=== PATIENT | male | born 1945 | race Native Hawaiian/Other Pacific Islander ===

== ENCOUNTER 2017-09-18 19:01 | Observation (INO) ==
--- NOTE | 2017-09-18 21:11 | ECG ---
Date Performed: 09/18/2017 Time Performed: 19:09:26 PTAGE: 72 years EKG: Sinus rhythm NORMAL ECG NO PREVIOUS TRACING DOCTOR: Klasu Edward Interpretating Date/Time 09/18/2017 21:11:09
--- NOTE | 2017-09-18 22:39 | ED ---
HPI General Chief Complaint: Chest Pain Stated Complaint: Patient states chest pain Time Seen by Provider: 09/18/17 22:01 Source: patient Limitations: no limitations History of Present Illness HPI narrative: The patient is a 72 year old male who presents to the [facility] emergency department with a history of 1 hour prior to arrival while resting having a sensation in his chest of his heart beating harder than usual. He denies having any chest pain or chest pressure. He does report having a pressure sensation in his neck associated with this. He denies having any shortness of breath. He denies having any diaphoresis. He reports that he also had an itchy sensation and bilateral arms. The patient has a history of coronary artery disease status post coronary artery bypass grafting of 5 vessels in 2009. He reports that he has not seen his biostatistics director for years or had a stress test in years as he has not had his primary care physician is Dr. Michael. The patient reports having a history of hypertension, hyperlipidemia , and borderline diabetes. The patient denies taking aspirin daily. The patient is however on Plavix for a prior history of stroke. The patient denies any history of fever, cough, congestion, neck pain, chest pain, shortness of breath, abdominal pain, vomiting, diarrhea, urinary symptoms , or neurologic symptoms. LMP [-] Tetanus is reportedly up to date. MD complaint: chest pain Complete Quality Measures for STEMI Alert Patients Onset (ago): hour(s) (1 hour ago) Duration: constant Onset: during rest Pain location: substernal Severity: mild Severity scale (1-10): 1 Quality: other (Sensation of heart beating "hard" in his chest) Pain radiation: RUE, LUE and neck Relieving factors: nothing Exacerbating factors: nothing Associated symptoms: palpitations Treatments prior to arrival chest pain: none Related Data Home Medications Medication Instructions Recorded Confirmed atorvastatin 20 mg PO DAILY 09/18/17 09/18/17 clopidogrel [Plavix] 75 mg PO DAILY 09/18/17 09/18/17 losartan 50 mg PO DAILY 09/18/17 09/18/17 metoprolol tartrate 50 mg PO BID 09/18/17 09/18/17 Allergies Allergy/AdvReac Type Severity Reaction Status Date / Time No Known Allergies Allergy Verified 09/18/17 20:11 Review of Systems ROS Unobtainable All other systems reviewed negative except as stated in HPI Constitutional Denies fever(s) Eyes Denies change in vision ENT Denies headache(s), Denies nasal congestion and Reports neck pain (Bilateral anterior neck) Cardiovascular Reports chest pain Respiratory Denies dyspnea and Denies dyspnea on exertion Gastrointestinal Denies abdominal pain, Denies diarrhea, Denies nausea and Denies vomiting Genitourinary Denies difficulty urinating Musculoskeletal Denies myalgias Integumentary/Breasts Denies rash Neurologic Denies headache(s), Denies focal weakness, Denies tingling and Denies weakness Psychiatric Denies depression Endocrine Denies polyuria Hematologic/Lymphatic Denies easy bruising PMFSH History History Provided By: Patient Medical History Medical History Bypass graft stenosis (Acute) CLL (chronic lymphocytic leukemia) (Acute) CVA (cerebral vascular accident) (Acute) Hyperlipidemia (Acute) Hypertension (Acute) Surgical History Surgical History History of cataract surgery (Acute) Hx of abdominal surgery (Acute) S/P CABG x 5 (Acute) Social History Social History Substance History: No History of Abuse Second Hand Smoke Exposure: No Smoking Status: Former smoker Tobacco Type: Cigarettes How Often Do You Have a Drink Containing Alcohol: Monthly or less Recent Travel in [facility] within the Last 8 Weeks: No Recent Out of Country Travel within the Last 8 Weeks: No Course Hospital Course: During the course of the patient's emergency department visit, the patient's history, examination, and differential diagnosis were reviewed with the patient. The patient was placed on a child monitor with oximetry and frequent blood pressure monitoring. The patient had IV access obtained and blood work sent for analysis. The patient was initially provided aspirin 324 mg p.o. 1, nitroglycerin sublingual 1, nitroglycerin 1 inch to the chest wall. Initial Documented Vital Signs Temperature 98.5 F 09/18/17 20:12 Pulse Rate 58 L 09/18/17 20:12 Respiratory Rate 16 09/18/17 20:12 Blood Pressure 137/66 09/18/17 20:12 Pulse Oximetry 97 09/18/17 20:12 Last Documented Vital Signs Temperature 98.5 F 09/18/17 20:12 Pulse Rate 71 09/19/17 01:18 Respiratory Rate 20 09/19/17 01:18 Blood Pressure 149/68 H 09/19/17 01:18 Pulse Oximetry 97 09/19/17 01:18 Medical Decision Making MDM Narrative Medical decision making narrative: The patient's diagnostic evaluation was started to identify any evidence of a STEMI, versus unstable angina, versus acid reflux, versus pneumonia, versus pneumothorax. The patient's diagnostic workup a white count of 26.9 in a patient with a reported history of his white count being around 25 related to his CLL, platelets 105, lymphocytes 56, hemoglobin 16.4, PT 11, PTT 24.7. Chemistry is remarkable for a troponin I of less than 0.02, CPK is noted to be 91, glucose 108, GFR of 82, calcium 8.4. Chest x-ray showed no evidence of acute cardiopulmonary disease. His CTA has been ruled out to evaluate for possible underlying pulmonary embolism. CTA was negative for pulmonary embolism. The patient's results were discussed with the patient, including the plan of care. I explained that further testing and/ or monitoring is indicated based on the patient's history, examination, and/ or laboratory findings. Therefore, I recommended admission for additional evaluation. The patient expressed understanding and was agreeable with this plan. The patient was admitted to the hospital in stable condition and sent to a bed under the care of [facility]. Differential Diagnosis Differential Diagnosis: Acute coronary syndrome, versus pulmonary embolism, versus pneumothorax, versus acid reflux, versus congestive heart failure Medical Records Medical records reviewed: Yes I reviewed the patient's medical records. Lab Data Lab results reviewed: Yes I reviewed the patient's lab results. Result diagrams: 09/18/17 22:36 09/18/17 22:36 Lab Results 09/18/17 09/18/17 09/18/17 Range/Units 22:36 22:36 22:36 WBC 26.9 H (4.0-11.0) th/mm3 RBC 5.23 (4.50-5.90) mil/mm3 Hgb 16.4 (13.0-17.0) gm/dL Hct 48.7 (39.0-51.0) % MCV 93.0 (80.0-100.0) fL MCH 31.3 (27.0-34.0) pg MCHC 33.6 (32.0-36.0) % RDW 13.2 (11.6-17.2) % Plt Count 105 L (150-450) th/mm3 MPV 10.0 (7.0-11.0) fL Prelim Diff (Auto) Slide review pending WBC Differential Manual diff final Seg Neuts % (Manual) 40 (16-70) % Lymphocytes % (Manual) 56 H (9-44) % Monocytes % (Manual) 2 (0-8) % Eosinophils % (Manual) 1 (0-4) % Blast Cells % (Manual) 1 H (0-0) % Abs Neuts (Manual) 10.8 H (1.8-7.7) th/mm3 Differential Comment . Smudge Cells Present H (None) Platelet Estimate Low L (Normal) Platelet Morphology Normal (Normal) PT 11.0 (9.8-11.6) sec INR 1.1 Ratio APTT 24.7 (24.3-30.1) sec Sodium 140 (136-145) meq/L Potassium 4.5 (3.5-5.1) meq/L Chloride 104 (98-107) meq/L Carbon Dioxide 28.8 (21.0-32.0) meq/L Anion Gap 7 (5-15) meq/L BUN 11 (7-18) mg/dL Creatinine 0.90 (0.60-1.30) mg/dL Estimated GFR 82 L (>89) mL/min Random Glucose 108 H (74-106) mg/dL Calcium 8.4 L (8.5-10.1) mg/dL Magnesium 2.2 (1.5-2.5) mg/dL Total Bilirubin 0.7 (0.2-1.0) mg/dL AST 28 (15-37) U/L ALT 29 (12-78) U/L Alkaline Phosphatase 88 (45-117) U/L Total Creatine Kinase 91 (39-308) U/L Troponin I Less than 0.02 L (0.02-0.05) ng/mL B-Natriuretic Peptide (0-100) pg/mL Total Protein 7.5 (6.4-8.2) g/dL Albumin 4.4 (3.4-5.0) g/dL Lipase 158 (73-393) U/L 09/18/17 Range/Units 22:36 WBC (4.0-11.0) th/mm3 RBC (4.50-5.90) mil/mm3 Hgb (13.0-17.0) gm/dL Hct (39.0-51.0) % MCV (80.0-100.0) fL MCH (27.0-34.0) pg MCHC (32.0-36.0) % RDW (11.6-17.2) % Plt Count (150-450) th/mm3 MPV (7.0-11.0) fL Prelim Diff (Auto) WBC Differential Seg Neuts % (Manual) (16-70) % Lymphocytes % (Manual) (9-44) % Monocytes % (Manual) (0-8) % Eosinophils % (Manual) (0-4) % Blast Cells % (Manual) (0-0) % Abs Neuts (Manual) (1.8-7.7) th/mm3 Differential Comment Smudge Cells (None) Platelet Estimate (Normal) Platelet Morphology (Normal) PT (9.8-11.6) sec INR Ratio APTT (24.3-30.1) sec Sodium (136-145) meq/L Potassium (3.5-5.1) meq/L Chloride (98-107) meq/L Carbon Dioxide (21.0-32.0) meq/L Anion Gap (5-15) meq/L BUN (7-18) mg/dL Creatinine (0.60-1.30) mg/dL Estimated GFR (>89) mL/min Random Glucose (74-106) mg/dL Calcium (8.5-10.1) mg/dL Magnesium (1.5-2.5) mg/dL Total Bilirubin (0.2-1.0) mg/dL AST (15-37) U/L ALT (12-78) U/L Alkaline Phosphatase (45-117) U/L Total Creatine Kinase (39-308) U/L Troponin I (0.02-0.05) ng/mL B-Natriuretic Peptide 37 (0-100) pg/mL Total Protein (6.4-8.2) g/dL Albumin (3.4-5.0) g/dL Lipase (73-393) U/L Imaging Data Radiologist's impression: ITS Impressions Chest X-Ray 09/18/17 22:03 CONCLUSION: No evidence of acute cardiopulmonary disease. Chest CTA 09/19/17 00:07 CONCLUSION: 1. No CT evidence for pulmonary artery embolism. 2. Coronary artery calcifications. 3. Nonspecific mild mediastinal adenopathy. ECG Data Attestation: I personally reviewed and interpreted this ECG as follows: Interpretation: The patient had an EKG done on arrival that showed a heart rate of 62, QRS duration 98 ms, QTC [address] segment elevation is noted. Discharge Plan Discharge Disposition Patient Disposition: 30 Still Patient Discharge Details Diagnosis: Chest pain, rule out acute myocardial infarction Physicians Team ED Provider: Deandra Gage Primary Care Provider: Destin Michael Attending Provider: Gareth Sung Status ED Status: Admitted Observation Patient
[2017-09-18 22:47] LABS: Hematocrit 48.7 % (39.0-51.0); Hemoglobin 16.4 gm/dL (13.0-17.0); Mean Corpuscular HGB Conc 33.6 % (32.0-36.0); Mean Corpuscular Hemoglobin 31.3 pg (27.0-34.0); Platelet Count 105 th/mm3 (150-450); Red Blood Count 5.23 mil/mm3 (4.50-5.90); Red Cell Distribution Width 13.2 % (11.6-17.2); White Blood Count 26.9 th/mm3 (4.0-11.0)
--- NOTE | 2017-09-18 22:49 | XR ---
EXAM DATE: 09/18/2017 10:44 PM EDT AGE/SEX: 72 years / Male INDICATIONS: Chest pain. CLINICAL DATA: This is the patient's initial encounter. Patient reports that signs and symptoms have been present for 2 days and indicates a pain score of 5/10. MEDICAL/SURGICAL HISTORY: Cardiovascular disease. CABG. 3 cardiac stents. COMPARISON: [facility], XR CHEST PA AND LAT, 06/04/2014. . FINDINGS: A single AP view of the chest demonstrates the lungs to be symmetrically aerated without evidence of mass, infiltrate or effusion. The cardiomediastinal contours are unremarkable. Osseous structures a re intact. Normal, stable heart size. Patient has had previous median sternotomy and CABG. CONCLUSION: No evidence of acute cardiopulmonary disease. Electronically signed by: Marlon Garcia MD 09/18/2017 10:48 PM EDT
[2017-09-18 22:59] LABS: Activated Partial Thrombo Time 24.7 sec (24.3-30.1); INR 1.1 Ratio
[2017-09-18 23:09] LABS: Alanine Aminotransferase 29 U/L (12-78); Albumin 4.4 g/dL (3.4-5.0); Alkaline Phosphatase 88 U/L (45-117); Anion Gap 7 meq/L (5-15); Aspartate Aminotransferase 28 U/L (15-37); Blood Urea Nitrogen 11 mg/dL (7-18); Calcium 8.4 mg/dL (8.5-10.1); Carbon Dioxide 28.8 meq/L (21.0-32.0); Chloride 104 meq/L (98-107); Creatine Kinase 91 U/L (39-308); Glomerular Filtration Rate 82 mL/min (>89); Glucose,Random 108 mg/dL (74-106); Lipase 158 U/L (73-393); Magnesium 2.2 mg/dL (1.5-2.5); Potassium 4.5 meq/L (3.5-5.1); Sodium 140 meq/L (136-145); Total Protein 7.5 g/dL (6.4-8.2)
[2017-09-18 23:11] LABS: Blast Cells 1 % (0-0); Eosinophils 1 % (0-4); Lymphocytes 56 % (9-44); Monocytes 2 % (0-8)
[2017-09-18 23:12] LABS: Platelet Morphology Normal (Normal); Smudge Cells Present
--- NOTE | 2017-09-19 01:12 | CT ---
EXAM DATE: 09/19/2017 12:54 AM EDT AGE/SEX: 72 years / Male INDICATIONS: Shortness of breath. CLINICAL DATA: This is the patient's initial encounter. Patient reports that signs and symptoms have been present for 1 day and indicates a pain score of 5/10. MEDICAL/SURGICAL HISTORY: Cardiovascular disease. Stroke. Hypertension. CABG. RADIATION DOSE: 5.12 CTDI (mGy) COMPARISON: [facility], CHEST 1V SINGLE AP, 09/18/2017. . TECHNIQUE: Volumetric scanning was performed using a multi-row detector CT scanner during bolus infu fiona of 75 ml Omnipaque 350 (iohexol) nonionic water-soluble contrast as a single exam dose. The christy a was post processed with a variety of visualization algorithms including full volume maximum intensi ty projection and sliding thin slab reformation. Using automated exposure control and adjustment of the mA and/or kV according to patient size, radiation dose was kept as low as reasonably achievable t o obtain optimal diagnostic quality images. DICOM format image data is available electronically for review and comparison. FINDINGS: Pulmonary Arteries: No filling defects are seen in the pulmonary arteries through the segmental vess els. The main pulmonary artery is normal in diameter. Lung: No significant focal parenchymal abnormalities. Pleura: No effusion, significant pleural thickening or pneumothorax. Mediastinum: No significant pericardial effusion. Coronary artery calcifications. Multiple subcentim eter mediastinal nodes with a dominant 11 mm anterior carinal node. Osseous Structures: No abnormal focal lytic or blastic bony lesions. Other: Visulaized upper abdomen is unremarkable. CONCLUSION: 1. No CT evidence for pulmonary artery embolism. 2. Coronary artery calcifications. 3. Nonspecific mild mediastinal adenopathy. Electronically signed by: Luis Alberto Mathis MD 09/19/2017 1:11 AM EDT
[2017-09-19] MEDS ORDERED: Acetaminophen 500 MG Tablet PO PRN (02:46)
[2017-09-19 04:02] LABS: Creatine Kinase 59 U/L (39-308)
[2017-09-19 06:33] LABS: Creatine Kinase 61 U/L (39-308)
--- NOTE | 2017-09-19 08:45 | ECG ---
Date Performed: 09/19/2017 Time Performed: 03:16:49 PTAGE: 72 years EKG: Sinus rhythm NORMAL ECG NO PREVIOUS TRACING DOCTOR: Gareth Sung Interpretating Date/Time 09/19/2017 08:45:10
--- NOTE | 2017-09-19 08:50 | ECG ---
Date Performed: 09/19/2017 Time Performed: 06:01:36 PTAGE: 72 years EKG: SINUS BRADYCARDIA NONSPECIFIC T-WAVE ABNORMALITY BORDERLINE ECG PREVIOUS TRACING : 09/18/2017 19.09 Since previous tracing, no significant change noted DOCTOR: Gareth Sung Interpretating Date/Time 09/19/2017 08:49:16
[2017-09-19] MEDS ORDERED: Metoprolol Tartrate 50 MG Tablet PO SCH (09:00)
[2017-09-19] MEDS ORDERED: Famotidine 20 MG Tablet PO SCH (09:00)
--- NOTE | 2017-09-19 10:12 | P.HPCA ---
History of Present Illness Primary Care Physician: Destin Michael MD Chief Complaint: Chest pain History of Present Illness: This is a 72-year-old male with history of CLL, CAD with 5 vessel bypass 2009, hypertension, hyperlipidemia the presents to ED with complaint of developing a pressure in his throat and jaw yesterday evening around 1800. It lasted about 10-15 minutes. He was not short of breath, nauseous, diaphoretic. Has history of CAD and had a bypass but states the symptoms do not feel similar to symptoms he had prior to needing bypass. States he has not been following a warm in worker since his bypass. Diagnosed with CLL about 6 months ago and is scheduled to have a PET scan in a couple days. He is following an oncologist at [place]. Currently denies chest discomfort. History of CAD with a bypass in 2009. He is not a smoker. There is family history of CAD. - Diagnosis (1) Chest pain (2) CAD (coronary artery disease) (3) History of coronary artery bypass graft (4) Hypertension (5) Hyperlipidemia (6) CLL (chronic lymphocytic leukemia) Inpatient Certification: I certify that the inpatient services were ordered in accordance with Medicare regulations governing the order. This includes certification that hospital inpatient services are reasonable and necessary and in the case of services not specified as inpatient-only under 42 CFR 419.22(n), that they are appropriately provided as inpatient services in accordance to with the 2-midnight benchmark under 43 CFR 412.3(e) Review of Systems General: Patient denies fevers, chills, and recent travel. HEENT: Patient denies headache, sore throat, difficulty swallowing. Cardiovascular: Has the chest discomfort as mentioned above. Denies sensation of heart beating rapidly or irregularly. No syncope. Denies diaphoresis. Respiratory: Denies shortness of breath or inspirational chest discomfort. Denies coughing wheezing or hemoptysis. GI: Patient denies nausea, vomiting, diarrhea, abdominal pain, bloody stools. Musculoskeletal: Patient denies joint pain or edema. Denies calf pain or edema. Neurovascular: Patient denies numbness, tingling, weakness in extremities. Denies headache. Endocrine: Denies polyuria and polydipsia. Hematologic: Denies easy bruising. Skin: Denies rash or itching. PMFSH - History History Provided By: Patient - Medical History Medical History: Medical History (Last Updated 09/18/17 @ 22:37 by Deandra Gage MD) Bypass graft stenosis CLL (chronic lymphocytic leukemia) CVA (cerebral vascular accident) Hyperlipidemia Hypertension - Surgical History Surgical History: Surgical History (Last Updated 09/18/17 @ 22:38 by Deandra Gage MD) History of cataract surgery Hx of abdominal surgery S/P CABG x 5 - Tobacco History Second Hand Smoke Exposure: No Tobacco Use In Past 30 Days: No Smoking Status: Former smoker Tobacco Type: Cigarettes - Alcohol History How Often Do You Have a Drink Containing Alcohol: Monthly or less - Substance Use History Substance History: No History of Abuse - Travel History Recent Travel in the [place] Within the Last 8 Weeks: No Recent Travel Out of the Country Within the Last 8 Weeks: No - Immunization History Tetanus Immunization: >5 Years Hx Influenza Vaccine This Season: Yes Medications and Allergies Active Medications: Active Medications Acetaminophen (Tylenol) 500 mg PO Q4H PRN PRN Reason: HEADACHE Atorvastatin Calcium (Lipitor) 20 mg PO DAILY [place] Famotidine (Pepcid) 20 mg PO BID [place] Losartan Potassium (Cozaar) 50 mg PO DAILY [place] Metoprolol Tartrate (Lopressor) 50 mg PO BID [place] Sodium Chloride (Ns Flush) 2 ml IV.FLUSH UNSCH PRN PRN Reason: FLUSH AFTER USING IV ACCESS Sodium Chloride (Ns Flush) 2 ml IV.FLUSH BID [place] Sodium Chloride (Ns Flush) 2 ml IV.FLUSH PRN PRN PRN Reason: FLUSH AFTER USING IV ACCESS Allergies Allergy/AdvReac Type Severity Reaction Status Date / Time No Known Allergies Allergy Verified 09/18/17 20:11 Home Medications Medication Instructions Recorded Confirmed Type atorvastatin 20 mg PO DAILY 09/18/17 09/18/17 History clopidogrel [Plavix] 75 mg PO DAILY 09/18/17 09/18/17 History losartan 50 mg PO DAILY 09/18/17 09/18/17 History metoprolol tartrate 50 mg PO BID 09/18/17 09/18/17 History Exam Vital signs: Vital Signs 09/18/17 20:12 09/18/17 22:21 09/19/17 01:18 Temperature 98.5 F Pulse Rate 58 L 60 71 Respiratory Rate 16 20 20 Blood Pressure 137/66 161/77 H 149/68 H Pulse Oximetry 97 98 97 09/19/17 05:01 Temperature Pulse Rate 68 Respiratory Rate 18 Blood Pressure 144/76 H Pulse Oximetry 97 Intake & Output 09/18/17 09/19/17 09/19/17 18:59 06:59 18:59 Weight 87.09 kg Narrative: GENERAL: This is a well-nourished, well-developed patient, in no apparent distress. Patient speaks in clear complete sentences. Patient is pleasant. HEENT: Head is atraumatic and normocephalic. Neck is supple without lymphadenopathy and trachea is midline. No JVD or carotid bruits. CARDIOVASCULAR: Regular rate and rhythm without murmurs, gallops, or rubs. RESPIRATORY: Clear to auscultation. Breath sounds equal bilaterally. No wheezes , rales, or rhonchi. Chest wall is nontender. No use of accessory muscles. GASTROINTESTINAL: Abdomen is nontender, nondistended. Abdomen soft. No obvious pulsatile mass or bruit. No CVA tenderness. Strong femoral pulses bilaterally. Normal bowel sounds in all quadrants. MUSCULOSKELETAL: Patient is moving upper and lower extremities freely. No calf tenderness or edema, no Homans sign. Strong pulses in upper and lower extremities. NEUROLOGICAL: Patient is alert and oriented. Cranial nerves 2-12 are grossly intact. No focal deficits and speech is clear. SKIN: No rash and turgor is normal. Results 09/18/17 22:36 09/18/17 22:36 Cardiac Enzymes 09/18/17 09/18/17 09/19/17 Range/Units 22:36 22:36 03:17 AST 28 (15-37) U/L Troponin I Less than 0.02 L Less than 0.02 L (0.02-0.05) ng/mL B-Natriuretic Peptide 37 (0-100) pg/mL 09/19/17 Range/Units 05:53 AST (15-37) U/L Troponin I Less than 0.02 L (0.02-0.05) ng/mL B-Natriuretic Peptide (0-100) pg/mL Coagulation 09/18/17 09/18/17 Range/Units 22:36 22:36 PT 11.0 (9.8-11.6) sec APTT 24.7 (24.3-30.1) sec B-Natriuretic Peptide 37 (0-100) pg/mL CBC 09/18/17 Range/Units 22:36 WBC 26.9 H (4.0-11.0) th/mm3 RBC 5.23 (4.50-5.90) mil/mm3 Hgb 16.4 (13.0-17.0) gm/dL Hct 48.7 (39.0-51.0) % Plt Count 105 L (150-450) th/mm3 Comprehensive Metabolic Panel 09/18/17 Range/Units 22:36 Sodium 140 (136-145) meq/L Potassium 4.5 (3.5-5.1) meq/L Chloride 104 (98-107) meq/L Carbon Dioxide 28.8 (21.0-32.0) meq/L BUN 11 (7-18) mg/dL Creatinine 0.90 (0.60-1.30) mg/dL Calcium 8.4 L (8.5-10.1) mg/dL AST 28 (15-37) U/L ALT 29 (12-78) U/L Alkaline Phosphatase 88 (45-117) U/L Total Protein 7.5 (6.4-8.2) g/dL Albumin 4.4 (3.4-5.0) g/dL Intake and Output 09/18/17 09/19/17 09/19/17 22:59 06:59 14:59 Other: Weight 87.09 kg EKG interpretations - EKG EKG shows: sinus rhythm (EKGs are sinus rhythm without significant ST segment depressions or elevations.) Caprini VTE Risk Assessment Caprini VTE Risk Assessment: Moderate/High Risk (score >= 2) Caprini Risk Assessment Model: Point Value = 1 Point Value = 2 Point Value = 3 Point Value = 5 Age 41-60 Minor surgery BMI > 25 kg/m2 Swollen legs Varicose veins or History of unexplained or recurrent spontaneous Oral contraceptives or hormone replacement Sepsis (< 1 month) Serious lung disease, including pneumonia (< 1 month) Abnormal pulmonary function Acute myocardial infarction Congestive heart failure (< 1 month) History of inflammatory bowel disease Medical patient at bed rest Age 61-74 Arthroscopic surgery Major open surgery (> 45 min) Laparoscopic surgery (> 45 min) Malignancy Confined to bed (> 72 hours) Immobilizing plaster cast Central venous access Age >= 75 History of VTE Family history of VTE Factor V Leiden Prothrombin [id number] Lupus anticoagulant Anticardiolipin antibodies Elevated serum homocysteine Heparin-induced thrombocytopenia Other congenital or acquired thrombophilia Stroke (< 1 month) Elective arthroplasty Hip, pelvis, or leg fracture Acute spinal cord injury (< 1 month) Prophylaxis Regimen: Total Risk Factor Score Risk Level Prophylaxis Regimen 0-1 Low Early ambulation 2 Moderate Order ONE of the following: *Sequential Compression Device (SCD) *Heparin 5000 units SQ BID 3-4 Higher Order ONE of the following medications: *Heparin 5000 units SQ TID *Enoxaparin/Lovenox 40 mg SQ daily (WT < 150 kg, CrCl > 30 mL/min) *Enoxaparin/Lovenox 30 mg SQ daily (WT < 150 kg, CrCl > 10-29 mL/min) *Enoxaparin/Lovenox 30 mg SQ BID (WT < 150 kg, CrCl > 30 mL/min) AND/OR *Sequential Compression Device (SCD) 5 or more Highest Order ONE of the following medications: *Heparin 5000 units SQ TID (Preferred with Epidurals) *Enoxaparin/Lovenox 40 mg SQ daily (WT < 150 kg, CrCl > 30 mL/min) *Enoxaparin/Lovenox 30 mg SQ daily (WT < 150 kg, CrCl > 10-29 mL/min) *Enoxaparin/Lovenox 30 mg SQ BID (WT < 150 kg, CrCl > 30 mL/min) AND *Sequential Compression Device (SCD) Assessment and Plan - Assessment (1) Chest pain Code(s): R07.9 - Chest pain, unspecified Status: Acute (2) CAD (coronary artery disease) Code(s): I25.10 - Atherosclerotic heart disease of [place] coronary artery without angina pectoris Status: Acute (3) History of coronary artery bypass graft Code(s): Z95.1 - Presence of aortocoronary bypass graft Status: Acute (4) Hypertension Code(s): I10 - Essential (primary) hypertension Status: Acute (5) Hyperlipidemia Code(s): E78.5 - Hyperlipidemia, unspecified Status: Acute (6) CLL (chronic lymphocytic leukemia) Code(s): C91.90 - Lymphoid leukemia, unspecified not having achieved remission Status: Acute - Plan * Chest pain: Patient has had serial cardiac enzymes and EKGs for ruling out purposes. He has been seen by Dr. Gareth Sung of cardiology in the chest pain center. He will undergo a Lexiscan. He will be discharged home if the stress test is nonischemic with instructions to follow-up with warm in worker and primary care physician. Return to ED for interval issues. * CLL: Patient is to continue his follow-up with his oncologist through [place]. Follow recommendations by his oncologist at [place]. * Hypertension: Continue medication. * Hyperlipidemia: Continue medication. * CAD with history of CABG: This will be reassessed with stress testing. Patient will need to follow-up with warm in worker. He has been on Plavix since his bypass. Dr. Sung discussed this with the patient. His platelets are low, Plavix will be discontinued at this time. Patient is stable at this time. He is agreeable to this plan.
[2017-09-19] MEDS ORDERED: Regadenoson Inj 0.4 MG/5 ML Syringe IV.PUSH ONE (10:46)
--- NOTE | 2017-09-19 12:25 | NM ---
EXAM DATE: 09/19/2017 12:05 PM EDT AGE/SEX: 72 years / Male INDICATIONS:Angina. . Mid chest pain for one day. CLINICAL DATA: This is the patient's initial encounter. Patient reports that signs and symptoms have been present for 1 day and indicates a pain score of 3/10. MEDICAL/SURGICAL HISTORY: Stroke. Hypertension. CABG. COMPARISON: No prior exams available for comparison. No external comparison. DOSE: 8.7 mCi Tc 99m Myoview at rest 25.8 mCi [id number] at stress 0.4 mg Lexiscan STRESS SYMPTOMS: None. EJECTION FRACTION: 68 % TECHNIQUE: The patient underwent pharmacologic stress with infusion of prescribed dose. Continuous ECG tracing was monitored during stress. Gated SPECT imaging was performed after stress and conventi onal SPECT imaging was performed at rest. The examination was performed on a SPECT/CT scanner, both attenuation and non-corrected datasets were reviewed. FINDINGS: Distribution: The maximum perfused segment at stress is in the anterior wall. Perfusion Study: The pattern of perfusion at stress is within normal limits. Gated Study: There are intact wall motion and wall thickening without hypokinetic or dyskinetic segm ents. The ejection fraction is calculated at 68%. RISK CATEGORY: Low (<1% Annual Motality Rate) CONCLUSION: 1. Negative examination. Electronically signed by: Catarino Olivarez MD 09/19/2017 12:24 PM EDT
--- NOTE | 2017-09-24 17:46 | TR ---
Date Performed: 09/19/2017 Time Performed: 11:09:52 DOCTOR: Gareth Sung DRUG LIST: CLINICAL HISTORY: REASON FOR TEST: REASON FOR ENDING: OBSERVATION: CONCLUSION: COMMENTS: Lexiscan stress test was performed under standard four minute protocol. Radionuclide was injected one minute prior to ending the test. No electrocardiographic abormalities were present t o suggest ischemia. Nuclear imaging and interpretation are pending.
== END 2017-09-19 13:13 | disposition home or self-care (01) ==
LOC: NEDA 19:01 → NEPE 19:01 → NEDH 19:01
PROVIDERS: ADMIT Internal Medicine Cardiovascular Disease; ATTEND Internal Medicine Cardiovascular Disease

== ENCOUNTER 2018-05-04 22:03 | Observation (INO) ==
[2018-05-05 00:06] LABS: Baso # (Auto) 0.1 th/mm3 (0.0-0.2); Baso % (Auto) 0.2 % (0.0-2.0); Eos # (Auto) 0.4 th/mm3 (0.0-0.4); Hematocrit 44.3 % (39.0-51.0); Hemoglobin 15.3 gm/dL (13.0-17.0); Lymph # (Auto) 33.1 th/mm3 (1.0-4.8); Lymph % (Auto) 84.3 % (9.0-44.0); Mean Corpuscular HGB Conc 34.5 % (32.0-36.0); Mean Corpuscular Volume 92.9 fL (80.0-100.0); Mean Platelet Volume 10.2 fL (7.0-11.0); Mono # (Auto) 0.9 th/mm3 (0.0-0.9); Mono % (Auto) 2.3 % (0.0-8.0); Neut # (Auto) 4.8 th/mm3 (1.8-7.7); Neut % (Auto) 12.2 % (16.0-70.0); Platelet Count 97 th/mm3 (150-450); Red Blood Count 4.77 mil/mm3 (4.50-5.90); Red Cell Distribution Width 13.6 % (11.6-17.2); White Blood Count 39.3 th/mm3 (4.0-11.0)
--- NOTE | 2018-05-05 00:11 | XR ---
EXAM DATE: 05/04/2018 11:56 PM EST AGE/SEX: 73 years / Male INDICATIONS: Chest pain. CLINICAL DATA: This is the patient's initial encounter. Patient reports that signs and symptoms have been present for 2 days and indicates a pain score of 8/10. MEDICAL/SURGICAL HISTORY: Leukemia. Stroke. Cardiovascular disease. CABG. 3 cardiac stents. COMPARISON: [facility] [place], CHEST 1V SINGLE AP, 09/18/2017. . FINDINGS: A single AP view of the chest demonstrates the lungs to be symmetrically aerated without evidence of mass, infiltrate or effusion. The cardiomediastinal contours are unremarkable. Osseous structures a re intact. Median sternotomy wires. CONCLUSION: No acute cardiopulmonary disease. Electronically signed by: Momo Valerio MD Board Certified Radiologist 05/05/2018 12:10 AM EST
[2018-05-05] MEDS ORDERED: Morphine Inj 4 MG/ML Vial IV.PUSH ONE (00:14)
[2018-05-05 00:22] LABS: Anion Gap 10 meq/L (5-15); Aspartate Aminotransferase 19 U/L (15-37); Blood Urea Nitrogen 16 mg/dL (7-18); Calcium 8.4 mg/dL (8.5-10.1); Carbon Dioxide 25.4 meq/L (21.0-32.0); Chloride 104 meq/L (98-107); Glomerular Filtration Rate 73 mL/min (>89); Glucose,Random 191 mg/dL (74-106); Potassium 3.7 meq/L (3.5-5.1); Sodium 139 meq/L (136-145)
[2018-05-05 00:23] LABS: Alanine Aminotransferase 24 U/L (12-78)
[2018-05-05 00:26] LABS: Alkaline Phosphatase 98 U/L (45-117); Total Protein 7.2 g/dL (6.4-8.2)
[2018-05-05 00:45] LABS: Lymphocytes 79 % (9-44); Monocytes 2 % (0-8)
[2018-05-05 00:47] LABS: Platelet Morphology Normal (Normal); Smudge Cells Present
[2018-05-05 00:48] LABS: RBC Morphology Normal (Normal)
--- NOTE | 2018-05-05 01:30 | ED ---
HPI General Chief Complaint: Chest Pain Stated Complaint: Chest Pain Time Seen by Provider: 05/04/18 23:35 Source: patient Mode of arrival: ambulatory Limitations: no limitations History of Present Illness HPI narrative: 73-year-old male came to the emergency room brought in by his with history of left-sided chest pain. Patient says that he has had this pain since yesterday. Pain does not radiate and feels sharp. Currently is 6 out of 10. No aggravating or relieving symptoms identified. Patient says it has been continuous since yesterday. Patient has history of CABG 5 vessel 7-8 years back. He has not seen a student accounts coordinator in over 2 years. His last catheterization was more than 6 years back. Patient says he was in this hospital last year and was admitted in the chest pain center where he had a stress test and it was negative. Patient takes Plavix. Patient is not a smoker and has been taking his medication like he supposed to. Related Data Home Medications Medication Instructions Recorded Confirmed atorvastatin 20 mg PO DAILY 09/18/17 05/04/18 clopidogrel [Plavix] 75 mg PO DAILY 09/18/17 05/04/18 losartan 50 mg PO DAILY 09/18/17 05/04/18 metoprolol tartrate 50 mg PO BID 09/18/17 05/04/18 Allergies Allergy/AdvReac Type Severity Reaction Status Date / Time No Known Allergies Allergy Verified 05/04/18 22:29 Review of Systems ROS: all other systems reviewed are negative [facility] Medical History Medical History CLL (chronic lymphocytic leukemia) (Acute) CVA (cerebral vascular accident) (Acute) Hyperlipidemia (Acute) Hypertension (Acute) Surgical History Surgical History History of cataract surgery (Acute) Hx of abdominal surgery (Acute) S/P CABG x 5 (Acute) Social History Social History Substance History: No History of Abuse Second Hand Smoke Exposure: No Smoking Status: Never smoker How Often Do You Have a Drink Containing Alcohol: Never Recent Travel in [place] within the Last 8 Weeks: No Recent Out of Country Travel within the Last 8 Weeks: No Immunization History Tetanus Immunization: <5 Years Exam Narrative Exam Narrative: GENERAL: Awake, alert, no obvious distress SKIN: Focused skin assessment warm/dry. HEAD: Atraumatic. Normocephalic. EYES: Pupils equal and round. No scleral icterus. No injection or drainage. ENT: No nasal bleeding or discharge. Mucous membranes pink and moist. NECK: Trachea midline. No JVD. CARDIOVASCULAR: Regular rate and rhythm. No murmur appreciated. RESPIRATORY: No accessory muscle use. Clear to auscultation. Breath sounds equal bilaterally. GASTROINTESTINAL: Abdomen soft, non-tender, nondistended. Hepatic and splenic margins not palpable. MUSCULOSKELETAL: No obvious deformities. No clubbing. No cyanosis. No edema. NEUROLOGICAL: Awake and alert. No obvious cranial nerve deficits. Motor grossly within normal limits. Normal speech. PSYCHIATRIC: Appropriate mood and affect; insight and judgment normal. Course Initial Documented Vital Signs Temperature 98.2 F 05/04/18 22:30 Pulse Rate 53 L 05/04/18 22:30 Respiratory Rate 17 05/04/18 22:30 Blood Pressure 148/70 H 05/04/18 22:30 Pulse Oximetry 97 05/04/18 22:30 Last Documented Vital Signs Temperature 98.2 F 05/05/18 07:23 Pulse Rate 58 L 05/05/18 09:38 Respiratory Rate 18 05/05/18 09:34 Blood Pressure 146/70 H 05/05/18 09:38 Pulse Oximetry 95 05/05/18 07:23 Medical Decision Making MDM Narrative Medical decision making narrative: 1:28 AM blood test results are back and patient has significant leukocytosis but he has history of leukemia. Rest of his blood test results are within acceptable limit. Patient was given nitroglycerin sublingual which did not alleviate his pain. I have given him morphine. I have decided to admit him to the chest pain center again. Case was discussed with the hospitalist Dr. Herrera who thought this patient would be more appropriate for chest pain center. Medical Screen Exam Complete: Yes Emergency Medical Condition: Yes Lab Data Result diagrams: 05/04/18 23:40 05/04/18 23:40 Lab Results 05/04/18 05/04/18 05/05/18 Range/Units 23:40 23:40 03:15 WBC 39.3 H (4.0-11.0) th/mm3 RBC 4.77 (4.50-5.90) mil/mm3 Hgb 15.3 (13.0-17.0) gm/dL Hct 44.3 (39.0-51.0) % MCV 92.9 (80.0-100.0) fL MCH 32.0 (27.0-34.0) pg MCHC 34.5 (32.0-36.0) % RDW 13.6 (11.6-17.2) % Plt Count 97 L (150-450) th/mm3 MPV 10.2 (7.0-11.0) fL Prelim Diff (Auto) Slide review pending Neut % (Auto) 12.2 L (16.0-70.0) % Lymph % (Auto) 84.3 H (9.0-44.0) % [place] % (Auto) 2.3 (0.0-8.0) % Eos % (Auto) 1.0 (0.0-4.0) % Baso % (Auto) 0.2 (0.0-2.0) % Neut # (Auto) 4.8 (1.8-7.7) th/mm3 Lymph # (Auto) 33.1 H (1.0-4.8) th/mm3 [place] # (Auto) 0.9 (0.0-0.9) th/mm3 Eos # (Auto) 0.4 (0.0-0.4) th/mm3 Baso # (Auto) 0.1 (0.0-0.2) th/mm3 WBC Differential Manual diff final Seg Neuts % (Manual) 17 (16-70) % Band Neuts % (Manual) 1 (0-6) % Lymphocytes % (Manual) 79 H (9-44) % Monocytes % (Manual) 2 (0-8) % Basophils % (Manual) 1 (0-2) % Plasma Cell % (Manual) (0-0) % Abs Neuts (Manual) 7.1 (1.8-7.7) th/mm3 Differential Comment . Smudge Cells Present H (None) Platelet Estimate Low L (Normal) Platelet Morphology Normal (Normal) RBC Morphology Normal (Normal) Sodium 139 (136-145) meq/L Potassium 3.7 (3.5-5.1) meq/L Chloride 104 (98-107) meq/L Carbon Dioxide 25.4 (21.0-32.0) meq/L Anion Gap 10 (5-15) meq/L BUN 16 (7-18) mg/dL Creatinine 1.00 (0.60-1.30) mg/dL Estimated GFR 73 L (>89) mL/min Random Glucose 191 H (74-106) mg/dL Calcium 8.4 L (8.5-10.1) mg/dL Total Bilirubin 0.5 (0.2-1.0) mg/dL AST 19 (15-37) U/L ALT 24 (12-78) U/L Alkaline Phosphatase 98 (45-117) U/L Total Creatine Kinase 59 (39-308) U/L Troponin I Less than 0.02 L Less than 0.02 L (0.02-0.05) ng/mL Total Protein 7.2 (6.4-8.2) g/dL Albumin 4.0 (3.4-5.0) g/dL 05/05/18 Range/Units 06:15 WBC (4.0-11.0) th/mm3 RBC (4.50-5.90) mil/mm3 Hgb (13.0-17.0) gm/dL Hct (39.0-51.0) % MCV (80.0-100.0) fL MCH (27.0-34.0) pg MCHC (32.0-36.0) % RDW (11.6-17.2) % Plt Count (150-450) th/mm3 MPV (7.0-11.0) fL Prelim Diff (Auto) Neut % (Auto) (16.0-70.0) % Lymph % (Auto) (9.0-44.0) % [place] % (Auto) (0.0-8.0) % Eos % (Auto) (0.0-4.0) % Baso % (Auto) (0.0-2.0) % Neut # (Auto) (1.8-7.7) th/mm3 Lymph # (Auto) (1.0-4.8) th/mm3 [place] # (Auto) (0.0-0.9) th/mm3 Eos # (Auto) (0.0-0.4) th/mm3 Baso # (Auto) (0.0-0.2) th/mm3 WBC Differential Seg Neuts % (Manual) (16-70) % Band Neuts % (Manual) (0-6) % Lymphocytes % (Manual) (9-44) % Monocytes % (Manual) (0-8) % Basophils % (Manual) (0-2) % Plasma Cell % (Manual) (0-0) % Abs Neuts (Manual) (1.8-7.7) th/mm3 Differential Comment Smudge Cells (None) Platelet Estimate (Normal) Platelet Morphology (Normal) RBC Morphology (Normal) Sodium (136-145) meq/L Potassium (3.5-5.1) meq/L Chloride (98-107) meq/L Carbon Dioxide (21.0-32.0) meq/L Anion Gap (5-15) meq/L BUN (7-18) mg/dL Creatinine (0.60-1.30) mg/dL Estimated GFR (>89) mL/min Random Glucose (74-106) mg/dL Calcium (8.5-10.1) mg/dL Total Bilirubin (0.2-1.0) mg/dL AST (15-37) U/L ALT (12-78) U/L Alkaline Phosphatase (45-117) U/L Total Creatine Kinase 55 (39-308) U/L Troponin I Less than 0.02 L (0.02-0.05) ng/mL Total Protein (6.4-8.2) g/dL Albumin (3.4-5.0) g/dL Imaging Data Radiologist's impression: Chest X-Ray 05/04/18 23:44 CONCLUSION: No acute cardiopulmonary disease. ECG Data Attestation: I personally reviewed and interpreted this ECG as follows: Interpretation: Twelve-lead EKG was reviewed by me. Normal sinus rhythm, normal axis, bradycardia, nonspecific ST-T wave changes. Heart rate of 52 bpm. Discharge Plan Discharge Disposition Patient Disposition: ED Admit(ED Internal Use Only) Discharge Condition Condition: Stable Discharge Order Discharge Orders: Discharge Order (Routine); Ordered 05/05/18 Ordered By: Evi Santiago ED Use Only Admit Order (Routine); Ordered 05/05/18 Ordered By: Shona Luna Discharge Details Anticipated Discharge Date: 05/05/18 Physicians Team ED Provider: Shona Luna Primary Care Provider: Destin Michael Attending Provider: Gareth Sung Other Providers: [facility],Insurance Status ED Status: Left Department Discharge Information Discharge Date/Time: 05/05/18 03:11
[2018-05-05 03:51] VITALS: O2SAT 95
[2018-05-05 04:29] LABS: Creatine Kinase 59 U/L (39-308)
[2018-05-05 07:26] VITALS: RESP 18; TEMP 98.2
[2018-05-05 07:34] LABS: Creatine Kinase 55 U/L (39-308)
--- NOTE | 2018-05-05 08:08 | P.HPCA ---
History of Present Illness Primary Care Physician: Destin Michael MD Chief Complaint: Chest pain History of Present Illness: 73 year old male with history of CABG (2009), CLL, CVA, and hypertension presents to ER for further evaluation of chest pain. Onset 2 days ago. Location left anterior chest. Characterized as sharp. Duration constant. Mild to moderate in severity. No associated symptoms of nausea, vomiting, dyspnea, or diaphoresis. No precipitating or relieving factors. Currently reports chest pain as mild. States chest pain "not bad, my back hurts more than my chest." Developed midback pain. Characterized as ache. Moderate in severity. Duration constant. No particular movement or position makes back pain better or worse. Reports taking Plavix for reported CVA 1 year ago. Does not follow with a meteorologist liaison. Was following with an oncologist at [facility] but reports now has local oncologist. He can not recall name of oncologist. Admitted to chest pain center September 2017. Completed Lexiscan which was unremarkable. Denies recent illness or injury. Past cardiac testing 09/19/2017 Lexiscan-negative examination Social history Known coronary artery disease, hypertension, and hyperlipidemia. No known diabetes. Lifelong non-smoker. . Endorses active lifestyle. - Diagnosis (1) Atypical chest pain (2) Back pain (3) CLL (chronic lymphocytic leukemia) (4) History of coronary artery bypass graft Review of Systems All other systems reviewed negative except as stated in HPI PMFSH - History History Provided By: Patient - Medical History Medical History: Medical History (Last Reviewed 05/05/18 @ 01:27 by Shona Luna MD) CLL (chronic lymphocytic leukemia) CVA (cerebral vascular accident) Hyperlipidemia Hypertension - Surgical History Surgical History: Surgical History (Last Updated 05/05/18 @ 08:08 by MYRIAM Mendoza) History of cataract surgery Hx of abdominal surgery S/P CABG x 5 - Tobacco History Second Hand Smoke Exposure: No Tobacco Use In Past 30 Days: No Smoking Status: Never smoker - Alcohol History How Often Do You Have a Drink Containing Alcohol: Never - Substance Use History Substance History: No History of Abuse - Travel History Recent Travel in the [place] Within the Last 8 Weeks: No Recent Travel Out of the Country Within the Last 8 Weeks: No - Immunization History Tetanus Immunization: <5 Years Medications and Allergies Active Medications: Active Medications Ketorolac Tromethamine (Toradol Inj) 30 mg IV.PUSH ONCE ONE Stop: 05/05/18 07:53 Sodium Chloride (Ns Flush) 2 ml IV.FLUSH UNSCH PRN PRN Reason: FLUSH AFTER USING IV ACCESS Sodium Chloride (Ns Flush) 2 ml IV.FLUSH BID [place] Sodium Chloride (Ns Flush) 2 ml IV.FLUSH PRN PRN PRN Reason: FLUSH AFTER USING IV ACCESS Allergies Allergy/AdvReac Type Severity Reaction Status Date / Time No Known Allergies Allergy Verified 05/04/18 22:29 Home Medications Medication Instructions Recorded Confirmed Type atorvastatin 20 mg PO DAILY 09/18/17 05/04/18 History clopidogrel [Plavix] 75 mg PO DAILY 09/18/17 05/04/18 History losartan 50 mg PO DAILY 09/18/17 05/04/18 History metoprolol tartrate 50 mg PO BID 09/18/17 05/04/18 History Exam Vital signs: Vital Signs 05/04/18 22:30 05/04/18 22:44 05/05/18 00:09 Temperature 98.2 F Pulse Rate 53 L 51 L 53 L Respiratory Rate 17 18 16 Blood Pressure 148/70 H 177/85 H 141/73 H Pulse Oximetry 97 97 96 05/05/18 00:53 05/05/18 01:28 05/05/18 03:11 Temperature 98 F Pulse Rate 53 L 58 L 78 Respiratory Rate 16 16 16 Blood Pressure 150/77 H 147/70 H 155/70 H Pulse Oximetry 96 95 96 05/05/18 03:50 05/05/18 06:35 05/05/18 07:23 Temperature 98.3 F 98.2 F Pulse Rate 50 L 68 60 Respiratory Rate 16 18 Blood Pressure 172/85 H 174/84 H Pulse Oximetry 95 95 Intake & Output 05/04/18 05/05/18 05/05/18 18:59 06:59 18:59 Weight 83.915 kg Other: Date of Last Bowel Movement 05/04/18 Weight On Admission 83.915 kg Narrative: GENERAL: Alert WN, WD, NAD, pleasant, elderly male HEAD: NC, AT NECK: Supple, no masses, trachea midline CV: RRR, without murmur, rub, or gallop. Chest wall nontender to palpation. RESP: Clear lungs throughout bilateral, no crackles, wheeze, rhonchi, symmetrical chest rise, nonlabored, able to speak in full sentences ABD: Soft, NT, ND, no masses, positive bowel tones EXT: Pulses +2x4, no dependent edema MS: Normal tone x4 extremities, lumbar nontender to palpation, no obvious deformities, full range of motion NEURO: Motor strength 5/5 PSYCH: A+O x3, pleasant affect, appropriate speech, mood, insight and judgment SKIN: Normal turgor, normal texture, no lesions, no rashes Results 05/04/18 23:40 05/04/18 23:40 Cardiac Enzymes 05/04/18 05/05/18 05/05/18 Range/Units 23:40 03:15 06:15 AST 19 (15-37) U/L Troponin I Less than 0.02 L Less than 0.02 L Less than 0.02 L (0.02-0.05) ng/mL CBC 05/04/18 Range/Units 23:40 WBC 39.3 H (4.0-11.0) th/mm3 RBC 4.77 (4.50-5.90) mil/mm3 Hgb 15.3 (13.0-17.0) gm/dL Hct 44.3 (39.0-51.0) % Plt Count 97 L (150-450) th/mm3 Neut # (Auto) 4.8 (1.8-7.7) th/mm3 Lymph # (Auto) 33.1 H (1.0-4.8) th/mm3 [place] # (Auto) 0.9 (0.0-0.9) th/mm3 Eos # (Auto) 0.4 (0.0-0.4) th/mm3 Baso # (Auto) 0.1 (0.0-0.2) th/mm3 Comprehensive Metabolic Panel 05/04/18 Range/Units 23:40 Sodium 139 (136-145) meq/L Potassium 3.7 (3.5-5.1) meq/L Chloride 104 (98-107) meq/L Carbon Dioxide 25.4 (21.0-32.0) meq/L BUN 16 (7-18) mg/dL Creatinine 1.00 (0.60-1.30) mg/dL Calcium 8.4 L (8.5-10.1) mg/dL AST 19 (15-37) U/L ALT 24 (12-78) U/L Alkaline Phosphatase 98 (45-117) U/L Total Protein 7.2 (6.4-8.2) g/dL Albumin 4.0 (3.4-5.0) g/dL Intake and Output 05/04/18 05/05/18 05/05/18 22:59 06:59 14:59 Other: Date of Last Bowel Movement 05/04/18 Weight 83.915 kg 83.915 kg Weight On Admission 83.915 kg - Imaging and Cardiology Imaging: Impressions Chest X-Ray 05/04/18 23:44 CONCLUSION: No acute cardiopulmonary disease. EKG interpretations - EKG EKG results cardiology: sinus rhythm, normal axis, normal QRS, normal ST/T Caprini VTE Risk Assessment Caprini VTE Risk Assessment: Moderate/High Risk (score >= 2) Caprini Risk Assessment Model: Point Value = 1 Point Value = 2 Point Value = 3 Point Value = 5 Age 41-60 Minor surgery BMI > 25 kg/m2 Swollen legs Varicose veins or History of unexplained or recurrent spontaneous Oral contraceptives or hormone replacement Sepsis (< 1 month) Serious lung disease, including pneumonia (< 1 month) Abnormal pulmonary function Acute myocardial infarction Congestive heart failure (< 1 month) History of inflammatory bowel disease Medical patient at bed rest Age 61-74 Arthroscopic surgery Major open surgery (> 45 min) Laparoscopic surgery (> 45 min) Malignancy Confined to bed (> 72 hours) Immobilizing plaster cast Central venous access Age >= 75 History of VTE Family history of VTE Factor V Leiden Prothrombin [id number] Lupus anticoagulant Anticardiolipin antibodies Elevated serum homocysteine Heparin-induced thrombocytopenia Other congenital or acquired thrombophilia Stroke (< 1 month) Elective arthroplasty Hip, pelvis, or leg fracture Acute spinal cord injury (< 1 month) Prophylaxis Regimen: Total Risk Factor Score Risk Level Prophylaxis Regimen 0-1 Low Early ambulation 2 Moderate Order ONE of the following: *Sequential Compression Device (SCD) *Heparin 5000 units SQ BID 3-4 Higher Order ONE of the following medications: *Heparin 5000 units SQ TID *Enoxaparin/Lovenox 40 mg SQ daily (WT < 150 kg, CrCl > 30 mL/min) *Enoxaparin/Lovenox 30 mg SQ daily (WT < 150 kg, CrCl > 10-29 mL/min) *Enoxaparin/Lovenox 30 mg SQ BID (WT < 150 kg, CrCl > 30 mL/min) AND/OR *Sequential Compression Device (SCD) 5 or more Highest Order ONE of the following medications: *Heparin 5000 units SQ TID (Preferred with Epidurals) *Enoxaparin/Lovenox 40 mg SQ daily (WT < 150 kg, CrCl > 30 mL/min) *Enoxaparin/Lovenox 30 mg SQ daily (WT < 150 kg, CrCl > 10-29 mL/min) *Enoxaparin/Lovenox 30 mg SQ BID (WT < 150 kg, CrCl > 30 mL/min) AND *Sequential Compression Device (SCD) Assessment and Plan - Assessment (1) Atypical chest pain Code(s): R07.89 - Other chest pain Status: Acute Plan: Admitted to chest pain center. Monitored on telemetry overnight. ACS ruled out with 3 sets of EKGs and cardiac enzymes. Seen and evaluated by Dr Gareth Sung. Chest discomfort constant greater 24 hours would expect changes in EKG or cardiac enzymes due to prolonged pain. Discomfort atypical chest pain and reported to be improving. Recent unremarkable Lexiscan 7 months ago. No further cardiac testing warranted at this time. Questioned patient required use of plavix, especially with low platelet counts. Reports being told to remain on Plavix due to recent CVA 1 year ago. (2) Back pain Code(s): M54.9 - Dorsalgia, unspecified Status: Acute Plan: Toradol 30 mg IV x1 dose. Apply ice pack to affected area in 20 minute intervals. Plan to discharge home with follow up with his primary care provider in next few days if pain persists. (3) CLL (chronic lymphocytic leukemia) Code(s): C91.90 - Lymphoid leukemia, unspecified not having achieved remission Status: Chronic Plan: WBC 39.3. Copies of laboratory studies will be given upon discharge. Instructed him to discuss with his oncologist continued use of Plavix. (4) History of coronary artery bypass graft Code(s): Z95.1 - Presence of aortocoronary bypass graft Status: Chronic Plan: Continue atorvastatin, losartan, and metoprolol. Encouraged him to establish with a local meteorologist liaison for at least yearly examinations. H&P: Quality - VTE Deep Vein Thrombosis/Pulmonary Embolism Present on Admission: No (2) Back pain Qualifiers: Back pain location: back pain in unspecified location Chronicity: acute Back pain laterality: midline Qualified Code(s): M54.9 - Dorsalgia, unspecified
[2018-05-05] MEDS ORDERED: Ketorolac Inj 30 MG/ML (IVP) Vial IV.PUSH ONE (09:00)
[2018-05-05] MEDS ORDERED: Metoprolol Tartrate 50 MG Tablet PO SCH (09:00)
[2018-05-05 09:39] VITALS: BP 146/70; PULSE 58
--- NOTE | 2018-05-06 07:05 | ECG ---
Date Performed: 05/04/2018 Time Performed: 22:43:02 PTAGE: 73 years EKG: SINUS BRADYCARDIA BORDERLINE ECG PREVIOUS TRACING : 09/19/2017 06.01 Since previous tracing, no significant change noted DOCTOR: Gareth Sung Interpretating Date/Time 05/06/2018 07:04:05
--- NOTE | 2018-05-06 07:05 | ECG ---
Date Performed: 05/05/2018 Time Performed: 03:11:56 PTAGE: 73 years EKG: SINUS BRADYCARDIA BORDERLINE ECG PREVIOUS TRACING : 05/04/2018 22.43 DOCTOR: Gareth Sung Interpretating Date/Time 05/06/2018 07:03:55
== END 2018-05-05 10:55 | disposition home or self-care (01) ==
LOC: NEPE 22:03 → NEDA 22:03 → NEPFCDU 05-05 03:24
PROVIDERS: ADMIT Internal Medicine Cardiovascular Disease; ATTEND Internal Medicine Cardiovascular Disease
DX: I10 Essential (primary) hypertension; E78.5 Hyperlipidemia, unspecified; Z79.02 Long term (current) use of antithrombotics/antiplatelets; R07.89 Other chest pain; M54.6 Pain in thoracic spine; I25.10 Atherosclerotic heart disease of native coronary artery without angina pectoris; C91.10 Chronic lymphocytic leukemia of B-cell type not having achieved remission; Z86.73 Personal history of transient ischemic attack (TIA), and cerebral infarction without residual deficits; Z95.1 Presence of aortocoronary bypass graft; Z79.899 Other long term (current) drug therapy
CPT/HCPCS: 71010; 71045; 80053; 82550; 84484; 85025; 93005; 96374; 99285; G0378; J1885